=== PATIENT | female | born 1970 | race Caucasian/White ===

== ENCOUNTER 2017-09-19 14:48 | Outpatient (CLI) | payer MEDICAID ==
[2017-09-19 13:47] LABS: HEMOGLOBIN A1C 0.97 g/dL
== END 2017-09-19 14:49 | disposition home or self-care (01) ==
LOC: LAB.N 14:48
PROVIDERS: ATTEND Nurse Practitioner Gerontology
DX: R73.09 Other abnormal glucose (principal); R73.9 Hyperglycemia, unspecified; Z79.899 Other long term (current) drug therapy
CPT/HCPCS: 36415; 80175; 83036

== ENCOUNTER 2018-01-13 14:01 | Outpatient (CLI) | payer MEDICAID ==
[2018-01-13 19:50] LABS: HB2 TOTAL 16.9 g/dL; HEMOGLOBIN A1C 0.82 g/dL; HEMOGLOBIN A1C % 6.6 % (4.6-6.2)
== END 2018-01-13 14:02 | disposition home or self-care (01) ==
LOC: LAB.N 14:01
PROVIDERS: ATTEND Nurse Practitioner Gerontology
DX: E11.9 Type 2 diabetes mellitus without complications (principal); Z79.899 Other long term (current) drug therapy
CPT/HCPCS: 36415; 80175; 83036

== ENCOUNTER 2018-04-28 08:00 | Outpatient (CLI) | payer MEDICAID ==
[2018-04-28 12:50] LABS: HB2 TOTAL 16.8 g/dL; HEMOGLOBIN A1C 0.79 g/dL; HEMOGLOBIN A1C % 6.5 % (4.6-6.2)
== END 2018-04-28 08:01 | disposition home or self-care (01) ==
LOC: LAB.N 08:00
PROVIDERS: ATTEND Nurse Practitioner Gerontology
DX: E11.9 Type 2 diabetes mellitus without complications (principal)
CPT/HCPCS: 36415; 83036

== ENCOUNTER → 2018-09-29 | Outpatient (CLI) | payer MEDICAID ==
[2018-09-29 19:56] LABS: HB2 TOTAL 15.8 g/dL; HEMOGLOBIN A1C 0.97 g/dL; HEMOGLOBIN A1C % 7.8 % (4.6-6.2)
== END ==
LOC: LAB.N 08:00
PROVIDERS: ATTEND Nurse Practitioner Gerontology
DX: E11.9 Type 2 diabetes mellitus without complications (principal)
CPT/HCPCS: 36415; 83036

== ENCOUNTER 2019-03-06 08:00 | Outpatient (CLI) | payer MEDICAID ==
[2019-03-06 18:41] LABS: BASOPHILS % (AUTO) 0.4 %; EOSINOPHILS # (AUTO) 0.1 10^3/uL (0.0-0.7); EOSINOPHILS % (AUTO) 2.2 %; HGB - HEMOGLOBIN 14.6 g/dL (12.0-16.0); LYMPHOCYTES # (AUTO) 1.5 10^3/uL (1.5-3.5); LYMPHOCYTES % (AUTO) 28.3 %; MEAN CORPUSCULAR HEMOGLOBIN 28.4 pg (27.0-31.0); MEAN CORPUSCULAR HGB CONC 33.3 g/dL (32.0-36.0); MEAN CORPUSCULAR VOLUME 85.1 fL (81.0-99.0); MEAN PLATELET VOLUME 9.5 fL (7.9-10.8); MONOCYTES # (AUTO) 0.4 10^3/uL (0.0-1.0); MONOCYTES % (AUTO) 7.7 %; NEUTROPHILS # (AUTO) 3.3 10^3/uL (1.5-6.6); NEUTROPHILS % (AUTO) 61.4 %; PLT - PLATELET COUNT 181 10^3/uL (130-450); RED BLOOD COUNT 5.16 10^6/uL (4.20-5.40); RED CELL DISTRIBUTION WIDTH 13.8 % (12.0-15.0); WHITE BLOOD COUNT 5.4 x10^3/uL (4.8-10.8)
[2019-03-06 19:06] LABS: ALBUMIN 4.1 g/dL (3.2-5.5); ALBUMIN/GLOBULIN RATIO 1.5 (1.0-2.2); ALKALINE PHOSPHATASE 109 IU/L (42-121); ALT ALANINE AMINOTRANSFERASE 49 IU/L (10-60); AST ASPARTATE AMINOTRANSFERASE 84 IU/L (10-42); BUN - BLOOD UREA NITROGEN 10 mg/dL (6-20); CALCIUM 9.1 mg/dL (8.5-10.3); CARBON DIOXIDE - CO2 27 mmol/L (21-32); CHLORIDE 104 mmol/L (101-111); CHOL/HDL RATIO 5.5 (<4.4); CHOLESTEROL 214 mg/dL; CREATININE 0.6 mg/dL (0.4-1.0); GFR - MDRD 106 (>89); GLUCOSE 180 mg/dL (70-100); HDL CHOLESTEROL 39 mg/dL; LDL CHOLESTEROL,CALCULATED 144 mg/dL; LDL/HDL RATIO 3.7 (<4.4); SODIUM 139 mmol/L (135-145); TOTAL PROTEIN 6.9 g/dL (6.7-8.2); VLDL CHOLESTEROL 31 mg/dL
== END 2019-03-06 23:59 | disposition home or self-care (01) ==
LOC: LAB.N 08:00
PROVIDERS: ATTEND Nurse Practitioner Gerontology
DX: E11.9 Type 2 diabetes mellitus without complications (principal)
CPT/HCPCS: 36415; 80053; 80061; 83721; 85025

== ENCOUNTER 2019-03-16 08:00 | Outpatient (CLI) | payer MEDICAID ==
[2019-03-16 14:58] LABS: HEMOGLOBIN A1C 1.07 g/dL; HEMOGLOBIN A1C % 8.3 % (4.6-6.2)
== END 2019-03-16 23:59 | disposition home or self-care (01) ==
LOC: LAB.N 08:00
PROVIDERS: ATTEND Nurse Practitioner Gerontology
DX: E11.9 Type 2 diabetes mellitus without complications (principal)
CPT/HCPCS: 36415; 83036

== ENCOUNTER 2021-06-14 16:43 | Outpatient (CLI) | payer MEDICAID, OTHER ==
--- NOTE | 2021-06-14 18:26 | XRAY Report ---
PROCEDURE: Chest 2 View X-Ray INDICATIONS: STRAIN OF MUSCLE AND TENDON OF BACK WALL OF THORAX TECHNIQUE: 2 view(s) of the chest. COMPARISON: None. FINDINGS: Surgical changes and devices: None. Lungs and pleura: No pleural effusions or pneumothorax. Lungs are clear. Mediastinum: Mediastinal contours are normal. Heart size is normal. Bones and chest wall: No suspicious bony abnormalities. Multilevel thoracic spine spurring. Soft tis sues appear unremarkable. IMPRESSION: No radiographic evidence of acute chest trauma. Reviewed by: Kaylie Vogel MD on 06/14/2021 6:25 PM PDT Approved by: Kaylie Vogel MD on 06/14/2021 6:25 PM PDT Station ID: [id number]
--- NOTE | 2021-06-14 18:27 | XRAY Report ---
PROCEDURE: Thoracic Spine 3 View INDICATIONS: STRAIN OF MUSCLE AND TENDON OF BACK WALL OF THORAX TECHNIQUE: 3 views of the thoracic spine were acquired. COMPARISON: None. FINDINGS: Bones: No fractures or dislocations. Multiple mid and lower thoracic spine osteophytes No suspiciou s bony lesions. 12 pairs of ribs are noted, and appear intact where visualized. Soft tissues: No paravertebral stripe thickening. IMPRESSION: 1. No acute thoracic spine fractures or subluxation. 2. Multilevel endplate degeneration. Reviewed by: Kaylie Vogel MD on 06/14/2021 6:26 PM PDT Approved by: Kaylie Vogel MD on 06/14/2021 6:26 PM PDT Station ID: [id number]
== END 2021-06-14 23:59 | disposition home or self-care (01) ==
LOC: DI.N 16:43
PROVIDERS: ATTEND Emergency Medicine
DX: S29.012A Strain of muscle and tendon of back wall of thorax, initial encounter (principal); M47.814 Spondylosis without myelopathy or radiculopathy, thoracic region

== ENCOUNTER 2021-09-29 07:10 | Outpatient (CLI) | payer SELFPAY ==
[2021-09-29 12:55] LABS: BASOPHILS # (AUTO) 0.1 10^3/uL (0.0-0.1); EOSINOPHILS # (AUTO) 0.2 10^3/uL (0.0-0.7); HCT - HEMATOCRIT 48.3 % (37.0-47.0); HGB - HEMOGLOBIN 16.8 g/dL (12.0-16.0); LYMPHOCYTES # (AUTO) 2.6 10^3/uL (1.5-3.5); LYMPHOCYTES % (AUTO) 33.5 %; MEAN CORPUSCULAR HEMOGLOBIN 29.4 pg (27.0-31.0); MEAN CORPUSCULAR HGB CONC 34.8 g/dL (32.0-36.0); MEAN CORPUSCULAR VOLUME 84.4 fL (81.0-99.0); MONOCYTES # (AUTO) 0.6 10^3/uL (0.0-1.0); MONOCYTES % (AUTO) 8.1 %; NEUTROPHILS # (AUTO) 4.3 10^3/uL (1.5-6.6); PLT - PLATELET COUNT 207 10^3/uL (130-450); RED BLOOD COUNT 5.72 10^6/uL (4.20-5.40); RED CELL DISTRIBUTION WIDTH 12.6 % (12.0-15.0); WHITE BLOOD COUNT 7.8 x10^3/uL (4.8-10.8)
[2021-09-29 13:16] LABS: THYROID STIMULATING HORMONE 1.71 uIU/mL (0.34-5.60)
[2021-09-29 13:17] LABS: ALBUMIN 4.2 g/dL (3.2-5.5); ALBUMIN/GLOBULIN RATIO 1.5 (1.0-2.2); ALKALINE PHOSPHATASE 120 IU/L (42-121); ALT ALANINE AMINOTRANSFERASE 23 IU/L (10-60); AST ASPARTATE AMINOTRANSFERASE 27 IU/L (10-42); BILIRUBIN,TOTAL 0.8 mg/dL (0.2-1.0); BUN - BLOOD UREA NITROGEN 13 mg/dL (6-20); CARBON DIOXIDE - CO2 29 mmol/L (21-32); CHLORIDE 101 mmol/L (101-111); CHOL/HDL RATIO 6.3 (<4.4); CHOLESTEROL 215 mg/dL; CREATININE 0.6 mg/dL (0.4-1.0); GFR - MDRD 105 (>89); GLUCOSE 307 mg/dL (70-100); HDL CHOLESTEROL 34 mg/dL; LDL CHOLESTEROL,CALCULATED 148 mg/dL; LDL/HDL RATIO 4.4 (<4.4); POTASSIUM 4.1 mmol/L (3.5-5.0); SODIUM 140 mmol/L (135-145); TRIGLYCERIDES 165 mg/dL; VLDL CHOLESTEROL 33 mg/dL
[2021-09-29 13:59] LABS: ESTIMATED AVERAGE GLUCOSE 283 mg/dL (70-100); HEMOGLOBIN A1c% 11.5 % (4.27-6.07)
[2021-09-29 18:43] LABS: CREATININE,URINE 42.7 mg/dL; MICROALBUM/CREATININE RATIO,UR 32.8 ug/mg (<30.0); MICROALBUMIN,URINE 1.4 mg/dL (0-300.0)
== END 2021-09-29 07:11 | disposition home or self-care (01) ==
LOC: LAB.N 07:10
PROVIDERS: ATTEND Registered Nurse
DX: E11.9 Type 2 diabetes mellitus without complications (principal)
CPT/HCPCS: 36415; 80053; 80061; 82043; 82570; 83036; 83721; 84443; 85025

== ENCOUNTER 2022-12-31 09:43 | Emergency (ER) | payer BC ==
--- OUTSIDE RECORDS SUMMARY | 2022-12-31 10:12 | EXTERNAL MEDICAL SUMMARY RPT | Continuity of Care Document ---
:1970 Author Organization [facility] Address [address] [place] [address] Phone Care Team Providers Name Role Phone Unavailable Unavailable Unavailable Hoa Aiken Unavailable Unavailable Allergies No information. Encounters No information. Functional Status No information. Immunizations No information. Medications No information. Problems No information. Procedures date description facility 2022-12-31 00:00 Visit Code Hold All Results/Labs No information. Social History No information. Vital Signs date measurement value units 2022-12-31 00:00 BMI 36.45 kg/m2 2022-12-31 00:00 BP_diastolic 115 mmHg 2022-12-31 00:00 BP_systolic 188 mmHg 2022-12-31 00:00 heart_rate 99 /min 2022-12-31 00:00 height_metric 158.75 cm 2022-12-31 00:00 height_standard 62.5 in 2022-12-31 00:00 respiration_rate 18 /min 2022-12-31 00:00 temperature_metric 37.28 C 2022-12-31 00:00 temperature_standard 99.1 F 2022-12-31 00:00 weight_metric 91.53 kg 2022-12-31 00:00 weight_standard 201.8 lb
--- NOTE | 2022-12-31 10:15 | ED Physician Documentation ---
PD HPI SKIN - Stated complaint Stated Complaint: LUMP ON HIND END - Chief complaint Chief Complaint: Wound - History obtained from History obtained from: Patient - History of Present Illness Timing - onset: How many days ago (several) Timing - duration: Days (several) Timing - details: Gradual onset, Still present Location: Other (perirectal) Quality / character: Painful, Swelling, Draining (minimally) Associated symptoms: Fever (subjective last night.). No: Myalgias Contributing factors: Unknown (diabetic and has not been taking oral med for awhile.). No: Exposed to soap / lotion, Recent illness Similar symptoms before: Has not had sx before Recently seen: Clinic (went to [facility] and referred to ER due to concnern for size of the abscess and needing tests/imaging possibly.) Review of Systems Constitutional: denies: Fever, Chills, Myalgias GI: denies: Abdominal Pain, Constipation, Diarrhea, Bloody / black stool PD PAST MEDICAL HISTORY - Past Medical History Cardiovascular: None Respiratory: Asthma Endocrine/Autoimmune: Type 2 diabetes (not currently taking the oral meds. blood sugar noted high in 400s at urgent care. 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 [employer]: Hysterectomy HEENT: Tonsil/Adenoidectomy - Present Medications Home Medications: Ambulatory Orders Medication Instructions Recorded Confirmed buPROPion [Wellbutrin Sr] 100 mg PO BID 11/05/13 03/02/15 Clindamycin [Cleocin] 300 mg PO Q6H 7 Days capsule 03/02/15 Oxycodone HCl/Acetaminophen 1 - 2 each PO Q6H PRN #15 tablet 03/02/15 [Percocet 5-325 mg Tablet] Chlorhexidine Gluconate [Hibiclens] 15 ml TP DAILY #236 ml 12/31/22 HYDROcod/ACETAM 5/325 [[place] 5/325] 1 ea PO Q6H PRN #18 tablet 12/31/22 Mupirocin 2% Oint [Bactroban 2% 1 applic TOP DAILY #15 gm 12/31/22 Oint] Sulfamethox/Trimeth 800/160 1 each PO BID #14 tablet 12/31/22 [Bactrim Ds 800/160] - Allergies Allergies/Adverse Reactions: Allergies Allergy/AdvReac Type Severity Reaction Status Date / Time metformin Allergy Emesis Verified 12/31/22 09:52 Penicillins Allergy respiratory Verified 12/31/22 09:52 /rash - Social History Does the pt smoke?: No Smoking Status: Never smoker Does the pt drink ETOH?: No Does the pt have substance abuse?: No - Immunizations Immunizations are current?: No - POLST Patient has POLST: No PD ED PE NORMAL - Vitals Vital signs reviewed: Yes - General General: No: Alert and oriented X 3, Well developed/nourished - Neck Neck: Supple, no meningeal sign, No adenopathy - Cardiac Cardiac: RRR, No murmur - Respiratory Respiratory: Clear bilaterally - Abdomen Abdomen: Soft, Non tender - Derm Derm: Normal color, Warm and dry - Extremities Extremities: Other (right perirectal area with area of underlying swelling, tenderness, with some fluctuance. It is elevated and almost pointing. ) - Neuro Neuro: No motor deficit, No sensory deficit Results - Vitals Vitals: Oxygen O2 Source Room air - Labs Labs: Microbiology 12/31/22 11:41 Wound Culture - Preliminary Abscess Escherichia Coli YEAST Beta Hemolytic Strep Group B Procedures - Abscess I&D (location) perirectal Preparation: Lidocaine 1%, With epi Incision: Incised with scalpel, Purulent drainage, Irrigated, Culture obtained Other: Pt tolerated well, Dressing applied, Antibiotic prescribed Departure - Departure Disposition: 01 Home, Self Care Clinical Impression: Perirectal abscess, Diabetes type 2, uncontrolled Condition: Stable Record reviewed to determine appropriate education?: Yes Instructions: ED Abscess IandD Prescriptions: Sulfamethox/Trimeth 800/160 [Bactrim Ds 800/160] 1 each PO BID #14 tablet Mupirocin 2% Oint [Bactroban 2% Oint] 1 applic TOP DAILY #15 gm Chlorhexidine Gluconate [Hibiclens] 15 ml TP DAILY #236 ml HYDROcod/ACETAM 5/325 [[place] 5/325] 1 ea PO Q6H PRN #18 tablet PRN Reason: Pain Comments: You can do warm soaks or moist compresses to the area to help promote blood flow to the area and further drainage. There was approximately 2 to 3 tablespoons of purulent material that drained out. Hopefully there will be more through the day. Bactrim antibiotic twice daily for the next week to help with clearing the infection as well. You can use ibuprofen or naproxen to 3 times daily to help with pain and inflammation. Add Tylenol every 4-6 hours if needed for pain or hydrocodone/acetaminophen if needed for worse pain. I would anticipate this improving well over the next couple of days. Resume your blood pressure and diabetes medicines. Follow-up with your spec ialist Saturday as planned. To try to reduce the potential for recurrent abscesses, I would suggest using chlorhexidine body wash head to toe with your showers daily for the next several weeks to a month. He only need a little bit with each time sort of like a body wash. Also use mupirocin antibiotic ointment daily just a little bit worked in around your nailbeds and use a Q-tip to apply some lightly in the nostrils. Recurring abscesses as you have had are commonly because of a higher degree of bacteria on the surface of your skin and also in nose and nailbed hiding spots. The above measures we will try to reduce that so that you do not get recurring infections. I sent a prescriptions to your preferred pharmacy. My narcotic instructions Discharge Date/Time: 12/31/22 12:22
[2022-12-31] MEDS ORDERED: KETOROLAC 30 MG/ML VIAL IM STA (10:28)
[2022-12-31] MEDS ORDERED: SULFAMETH/TRIMETH DS 800/160 MG TABLET PO STA (10:28)
[2022-12-31] MEDS ORDERED: GLIMEPIRIDE 2 MG TABLET PO STA (11:57)
[2022-12-31 12:22] VITALS: BP 153/90
== END 2022-12-31 12:22 | disposition home or self-care (01) ==
LOC: ED 09:43
DX: K61.1 Rectal abscess (principal); E11.65 Type 2 diabetes mellitus with hyperglycemia; I10 Essential (primary) hypertension; Z79.84 Long term (current) use of oral hypoglycemic drugs; Z91.14 Patient's other noncompliance with medication regimen
CPT/HCPCS: 46040; 87070; 87077; 87181; 87205; 96372; 99283; 99284; A9270

== ENCOUNTER 2023-10-19 11:09 | Outpatient (CLI) | payer BC ==
--- NOTE | 2023-10-20 11:34 | XRAY Report ---
PROCEDURE: Chest 2 View X-Ray INDICATIONS: ACUTE LOWER RESPIRATORY INFECTION TECHNIQUE: 2 views of the chest were acquired. COMPARISON: Chest radiograph on May 15, 2021. FINDINGS: Surgical changes and devices: None. Lungs and pleura: No pleural effusions or pneumothorax. Lungs are clear. Mediastinum: Mediastinal contours appear normal. Heart size is normal. Bones and chest wall: No suspicious bony lesions. Multilevel degenerative changes of the spine. Ove rlying soft tissues appear unremarkable. IMPRESSION: No acute cardiopulmonary process. Reviewed by: Judit Duncan MD on 10/20/2023 11:33 AM PST Approved by: Judit Duncan MD on 10/20/2023 11:33 AM PST Station ID: [id number]
== END 2023-10-19 11:10 | disposition home or self-care (01) ==
LOC: DI 11:09
PROVIDERS: ATTEND Nurse Practitioner
DX: J22 Unspecified acute lower respiratory infection (principal)

== ENCOUNTER 2024-03-20 13:43 | Outpatient (CLI) | payer BC ==
[2024-03-20 18:28] LABS: BASOPHILS # (AUTO) 0.1 10^3/uL (0.0-0.1); EOSINOPHILS # (AUTO) 0.1 10^3/uL (0.0-0.7); EOSINOPHILS % (AUTO) 2.2 %; HCT - HEMATOCRIT 48.5 % (37.0-47.0); HGB - HEMOGLOBIN 16.3 g/dL (12.0-16.0); LYMPHOCYTES # (AUTO) 1.4 10^3/uL (1.5-3.5); LYMPHOCYTES % (AUTO) 28.6 %; MEAN CORPUSCULAR HEMOGLOBIN 28.1 pg (27.0-31.0); MEAN CORPUSCULAR HGB CONC 33.6 g/dL (32.0-36.0); MEAN CORPUSCULAR VOLUME 83.6 fL (81.0-99.0); MEAN PLATELET VOLUME 11.1 fL (7.9-10.8); MONOCYTES # (AUTO) 0.5 10^3/uL (0.0-1.0); MONOCYTES % (AUTO) 9.3 %; NEUTROPHILS # (AUTO) 2.9 10^3/uL (1.5-6.6); NEUTROPHILS % (AUTO) 58.5 %; PLT - PLATELET COUNT 199 10^3/uL (130-450); RED CELL DISTRIBUTION WIDTH 12.8 % (12.0-15.0)
[2024-03-20 19:44] LABS: ALBUMIN 4.3 g/dL (3.2-5.5); ALBUMIN/GLOBULIN RATIO 1.7 (1.0-2.2); ALKALINE PHOSPHATASE 92 IU/L (42-121); ALT ALANINE AMINOTRANSFERASE 20 IU/L (10-60); AST ASPARTATE AMINOTRANSFERASE 21 IU/L (10-42); BILIRUBIN,TOTAL 0.8 mg/dL (0.2-1.0); BUN - BLOOD UREA NITROGEN 14 mg/dL (6-20); CALCIUM 9.6 mg/dL (8.5-10.3); CARBON DIOXIDE - CO2 26 mmol/L (21-32); CHLORIDE 100 mmol/L (101-111); CHOL/HDL RATIO 5.4 (<4.4); CHOLESTEROL 221 mg/dL; CREATININE 0.7 mg/dL (0.6-1.3); GFR - MDRD 87 (>89); GLUCOSE 319 mg/dL (74-104); HDL CHOLESTEROL 41 mg/dL; LDL CHOLESTEROL,CALCULATED 140 mg/dL; LDL/HDL RATIO 3.4 (<4.4); POTASSIUM 4.6 mmol/L (3.5-4.5); SODIUM 134 mmol/L (135-145); TOTAL PROTEIN 6.8 g/dL (6.4-8.9); TRIGLYCERIDES 198 mg/dL (48-352); VLDL CHOLESTEROL 40 mg/dL
[2024-03-20 20:48] LABS: ESTIMATED AVERAGE GLUCOSE 260 mg/dL (70-100); HEMOGLOBIN A1c% 10.7 % (4.27-6.07)
[2024-03-20 21:47] LABS: CREATININE,URINE 58.4 mg/dL; MICROALBUM/CREATININE RATIO,UR 15.4 ug/mg (<30.0); MICROALBUMIN,URINE 0.9 mg/dL
== END 2024-03-20 13:44 | disposition home or self-care (01) ==
LOC: LAB.N 13:43
PROVIDERS: ATTEND Registered Nurse
DX: E11.42 Type 2 diabetes mellitus with diabetic polyneuropathy (principal); E78.2 Mixed hyperlipidemia; Z13.228 Encounter for screening for other metabolic disorders; Z13.220 Encounter for screening for lipoid disorders; Z13.29 Encounter for screening for other suspected endocrine disorder; Z13.0 Encounter for screening for diseases of the blood and blood-forming organs and certain disorders involving the immune mechanism
CPT/HCPCS: 36415; 80053; 80061; 82043; 82570; 83036; 83721; 84443; 85025